=== PATIENT | female | born 1995 | race Caucasian/White ===

== ENCOUNTER 2017-08-27 12:25 | Emergency (ER) | payer OTHER ==
[2017-08-27] MEDS ORDERED: IBUPROFEN 400 MG TAB ONE (12:45)
[2017-08-27] MEDS ORDERED: IBUPROFEN 200 MG TAB PO ONE (12:45)
[2017-08-27] MEDS ORDERED: CEFTRIAXONE 1000 MG/VIAL ONE (13:26)
[2017-08-27] MEDS ORDERED: NA CHLORIDE 0.9% 1,000 ML ONE (13:26)
[2017-08-27] MEDS ORDERED: NA CHLORIDE 0.9% 100 ML IV ONE (13:26)
[2017-08-27 13:34] LABS: Absolute Lymphocytes (CBC) 0.7 K/uL (0.7-4.9); Absolute Monocytes 1.2 K/uL (0.1-1.3); Absolute Neutrophil 13.2 K/uL (1.8-8.0); Basophils % 0.2 % (0-1.3); Hematocrit 36.6 % (36.0-45.0); Lymphocytes % 4.8 % (15.3-44.8); MCH 30.2 pg (27.0-35.0); MCV 92.3 fL (80-100); MPV 8.2 fL (7.6-11.3); Monocytes % 8.1 % (3.3-12.3); RBC Red Blood Cell Count 3.96 M/uL (3.86-4.86)
[2017-08-27 13:46] LABS: BUN Blood Urea Nitrogen 7 mg/dL (7-18); Bicarbonate 25 mmol/L (21-32); Glucose Level 88 mg/dL (74-106); Potassium 3.4 mmol/L (3.5-5.1); Sodium Level 137 mmol/L (136-145)
[2017-08-27 13:46] LABS: Urine Amorphous Sediment 1+ /HPF (NONE SEEN); Urine Bacteria 20-50 /HPF (<20); Urine Culture Reflex Order REFLEXED; Urine Mucus 2+ /HPF (NONE SEEN)
[2017-08-27 13:47] LABS: Urine Blood 2+ (NEG); Urine Glucose NEGATIVE (NEG); Urine Protein NEGATIVE (NEG); Urine pH 6.5 (5.0-7.0)
[2017-08-27 14:39] LABS: Blood Morphology Comment NOT SEEN (NOT SEEN); Platelet Estimate ADEQ; Urine White Blood Cell Casts OK
--- NOTE | 2017-08-27 15:13 | EDPHYS ---
Physician Documentation [facility] Name: Alejandra Flores Age: 22 yrs Sex: Female : 1995 Arrival Date: 08/27/2017 Time: 12:29 Bed 24 Private MD: None, None ED Physician Blaise Wheeler HPI: 08/27 13:43 This 22 yrs old Female presents to ER via Ambulatory with complaints of jr8 urinary symptoms. 13:43 The patient presents with flank pain, on the right, urinary symptoms, dysuria, jr8 frequency, urgency. Onset: The symptoms/episode began/occurred gradually, 1 week(s) ago, and became worse and became persistent. Modifying factors: The symptoms are alleviated by nothing, the symptoms are aggravated by urinating. Associated signs and symptoms: Pertinent positives: fever, dizziness. Severity of symptoms: At their worst the symptoms were moderate, in the emergency department the symptoms are unchanged. The patient has not experienced similar symptoms in the past. The patient has not recently seen a physician. 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 - Social history:: Smoking status: Patient uses tobacco products, smokes one-half pack cigarettes per day. - Ebola Screening: : Patient negative for fever greater than or equal to 101.5 degrees Fahrenheit, and additional compatible Ebola Virus Disease symptoms Patient denies exposure to infectious person Patient denies travel to an Ebola-affected area in the 21 days before illness onset No symptoms or risks identified at this time. ROS: 13:43 Eyes: Negative for injury, pain, redness, and discharge, ENT: Negative for injury, jr8 pain, and discharge, Neck: Negative for injury, pain, and swelling, Cardiovascular: Negative for chest pain, palpitations, and edema, Respiratory: Negative for shortness of breath, cough, wheezing, and pleuritic chest pain, Abdomen/GI: Negative for abdominal pain, nausea, vomiting, diarrhea, and constipation, MS/Extremity: Negative for injury and deformity, Skin: Negative for injury, rash, and discoloration, Neuro: Negative for headache, weakness, numbness, tingling, and seizure. 13:43 Back: Positive for flank pain, on the left. 13:43 : Positive for urinary symptoms, burning with urination. Exam: 13:43 Eyes: Pupils equal round and reactive to light, extra-ocular motions intact. Lids and jr8 lashes normal. Conjunctiva and sclera are non-icteric and not injected. Cornea within normal limits. Periorbital areas with no swelling, redness, or edema. ENT: Nares patent. No nasal discharge, no septal abnormalities noted. Tympanic membranes are normal and external auditory canals are clear. Oropharynx with no redness, swelling, or masses, exudates, or evidence of obstruction, uvula midline. Mucous membranes moist. Neck: Trachea midline, no thyromegaly or masses palpated, and no cervical lymphadenopathy. Supple, full range of motion without nuchal rigidity, or vertebral point tenderness. No Meningismus. Cardiovascular: Regular rate and rhythm with a normal S1 and S2. No gallops, murmurs, or rubs. Normal PMI, no JVD. No pulse deficits. Respiratory: Lungs have equal breath sounds bilaterally, clear to auscultation and percussion. No rales, rhonchi or wheezes noted. No increased work of breathing, no retractions or nasal flaring. Skin: Warm, dry with normal turgor. Normal color with no rashes, no lesions, and no evidence of cellulitis. MS/ Extremity: Pulses equal, no cyanosis. Neurovascular intact. Full, normal range of motion. Neuro: Awake and alert, GCS 15, oriented to person, place, time, and situation. Cranial nerves II-XII grossly intact. Motor strength 5/5 in all extremities. Sensory grossly intact. Cerebellar exam normal. Normal gait. 13:43 Abdomen/GI: Inspection: abdomen appears normal, Bowel sounds: active, all quadrants, Palpation: soft, in all quadrants, mild abdominal tenderness, in the suprapubic area, mass, is not appreciated, rebound tenderness, is not appreciated, voluntary guarding, is not appreciated, involuntary guarding, is not appreciated, no appreciated organomegaly, Indicators: McBurney's point is not tender, Henley's sign is negative, Rovsing's sign is negative, Liver: no appreciated palpable abnormalities, tenderness, is not appreciated. 13:43 Back: pain, that is moderate, of the right flank, ROM is normal, normal spinal alignment noted, CVA tenderness, that is mild, is noted on the right. Vital Signs: 12:45 BP 128 / 72; Pulse 105; Resp 20; Temp 101.1; Pulse Ox 97% on R/A; Weight 65.77 kg; aj Height 5 ft. 10 in. (177.80 cm); 13:25 BP 108 / 62; Pulse 77; Resp 18; Pulse Ox 98% on R/A; mt 14:28 BP 106 / 58; Pulse 85; Resp 16; Pulse Ox 99% on R/A; mt 12:45 Body Mass Index 20.81 (65.77 kg, 177.80 cm) aj MDM: 12:51 Patient medically screened. jr8 15:09 Data reviewed: vital signs, nurses notes, lab test result(s), and as a result, I will jr8 discharge patient. Data interpreted: Pulse oximetry: on room air is 99 %. Interpretation: normal. Counseling: I had a detailed discussion with the patient and/or guardian regarding: the historical points, exam findings, and any diagnostic results supporting the discharge/admit diagnosis, the need for outpatient follow up, a family practitioner, to return to the emergency department if symptoms worsen or persist or if there are any questions or concerns that arise at home. Response to treatment: the patient's symptoms have markedly improved after treatment, patient is well hydrated. ED course: reassessed patient. Still has mild flank pain and CVA tenderness upon palpation. No other abdominal tenderness noted. Patient denies pain when she is not being palpated. Discussed with patient that this is more then likely UTI that has ascended into kidney. Needs to rest and hydrate for next couple of days. Will be continued on antibiotics. If worse to come back . 08/27 13:14 Order name: CBC with Diff; Complete Time: 15:02 [facility] 08/27 13:14 Order name: Basic Metabolic Panel; Complete Time: 13:48 08/27 13:14 Order name: Urine Microscopic Only; Complete Time: 13:48 08/27 13:22 Order name: Urine Dipstick--Ancillary (enter results); Complete Time: 13:48 em1 08/27 13:22 Order name: Urine --Ancillary (enter results); Complete Time: 13:48 em1 08/27 13:40 Order name: CBC Smear Scan; Complete Time: 15:02 EDMS 08/27 13:14 Order name: IV; Complete Time: 13:20 [facility] 08/27 13:14 Order name: Urine Test (obtain specimen); Complete Time: 13:15 8 08/27 13:14 Order name: Urine Dipstick-Ancillary (obtain specimen); Complete Time: 13:15 [facility] 08/27 13:46 Order name: Urine Culture EDMS Administered Medications: 12:48 Drug: Motrin 600 mg Route: PO; aj 16:15 Follow up: Response: No adverse reaction tl3 13:38 Drug: Rocephin 2 grams Route: IV; Rate: calculated rate; Site: right antecubital; tl3 16:10 Follow up: IV Status: Completed infusion; IV Intake: 100ml tl3 13:39 Drug: NS 0.9% 1000 ml Route: IV; Rate: 1000 ml; Site: right antecubital; tl3 16:10 Follow up: IV Status: Completed infusion; IV Intake: 1000ml tl3 15:50 Drug: [place] (7.5 mg-325 mg) 1 tabs Route: PO; mb3 15:58 Follow up: Response: No adverse reaction mb3 16:10 Follow up: Response: Medication administered at discharge. tl3 Disposition: 08/28 06:39 Co-signature as Attending Physician, Blaise Wheeler MD I agree with the assessment and luisana plan of care. Disposition: 08/27/17 15:12 Discharged to Home. Impression: Acute tubulo-interstitial nephritis. - Condition is Stable. - Discharge Instructions: Pyelonephritis, Adult. - Prescriptions for Bactrim DS 800- 160 mg Oral Tablet - take 1 tablet by ORAL route every 12 hours for 10 days; 20 tablet. Zofran 4 mg Oral Tablet - take 1 tablet by ORAL route every 12 hours As needed; 20 tablet. - Medication Reconciliation Form, Thank You Letter, Antibiotic Education, Prescription Opioid Use, Work release form form. - Follow up: Private Physician; When: 1 - 2 days; Reason: Recheck today's complaints, Continuance of care, Re-evaluation by your physician. - Problem is new. - Symptoms have improved. Signatures: Dispatcher [employer] EDMS Sanches, Lori, RN Blaise Lima MD MD cha Roszak, Josh, PA PA jr8 Alona Dillon, SONI RN tl3 Nathaniel Britt RN RN mb3 Corrections: (The following items were deleted from the chart) 08/27 16:16 15:12 08/27/2017 15:12 Discharged to Home. Impression: Acute tubulo-interstitial tl3 nephritis. Condition is Stable. Forms are Medication Reconciliation Form, Thank You Letter, Antibiotic Education, Prescription Opioid Use. Follow up: Private Physician; When: 1 - 2 days; Reason: Recheck today's complaints, Continuance of care, Re-evaluation by your physician. Problem is new. Symptoms have improved. jr8
--- NOTE | 2017-08-27 15:13 | ER ---
Nurse's Notes [facility] Name: Alejandra Flores Age: 22 yrs Sex: Female : 1995 Arrival Date: 08/27/2017 Time: 12:29 Bed 24 Private MD: None, None Diagnosis: Acute tubulo-interstitial nephritis Presentation: 08/27 12:44 Presenting complaint: Patient states: Burning with urination for 1 week and fever since this AM. Transition of care: patient was not received from another setting of care. Onset of symptoms was August 20, 2017. Risk Assessment: Do you want to hurt yourself or someone else? Patient reports no desire to harm self or others. Initial Sepsis Screen: Does the patient meet any 2 criteria? No. Patient's initial sepsis screen is negative. Does the patient have a suspected source of infection? No. Patient's initial sepsis screen is negative. Care prior to arrival: None. 12:44 Method Of Arrival: Ambulatory 12:44 Acuity: GIULIANA 3 Triage Assessment: 12:45 Headache History: The patient has had previous headaches and this one is similar to previous episodes. General: Appears in no apparent distress. uncomfortable, Behavior is calm, cooperative, appropriate for age. Pain: Complains of pain in scalp, right mid back and right low back Pain currently is 6 out of 10 on a pain scale. Neuro: Level of Consciousness is awake, alert, obeys commands, Oriented to person, place, time, situation, Appropriate for age. Respiratory: Airway is patent Respiratory effort is even, unlabored, Respiratory pattern is regular, symmetrical. : Reports burning with urination, pain in right in lower back urinary frequency. Derm: Skin is intact, Skin is normal, Skin temperature is hot. 16:13 Pain: Is episodic, Also complains of. tl3 16:13 Pain: Pain began 2-3 days ago. 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 - Social history:: Smoking status: Patient uses tobacco products, smokes one-half pack cigarettes per day. - Ebola Screening: : Patient negative for fever greater than or equal to 101.5 degrees Fahrenheit, and additional compatible Ebola Virus Disease symptoms Patient denies exposure to infectious person Patient denies travel to an Ebola-affected area in the 21 days before illness onset No symptoms or risks identified at this time. Screenin:15 Abuse screen: Denies threats or abuse. Nutritional screening: No deficits noted. tl3 Tuberculosis screening: No symptoms or risk factors identified. Fall Risk None identified. Assessment: 13:15 General: General: Appears in no apparent distress. comfortable, well groomed, well tl3 developed, well nourished, Behavior is calm, cooperative, appropriate for age. Pain: Complains of pain in lower abdomen. 14:00 Reassessment: Patient appears in no apparent distress at this time. No changes from tl3 previously documented assessment. Patient and/or family updated on plan of care and expected duration. Pain level reassessed. Patient is alert, oriented x 3, equal unlabored respirations, skin warm/dry/pink. pt has no needs at this time awaiting disposition. Vital Signs: 12:45 BP 128 / 72; Pulse 105; Resp 20; Temp 101.1; Pulse Ox 97% on R/A; Weight 65.77 kg; aj Height 5 ft. 10 in. (177.80 cm); 13:25 BP 108 / 62; Pulse 77; Resp 18; Pulse Ox 98% on R/A; mt 14:28 BP 106 / 58; Pulse 85; Resp 16; Pulse Ox 99% on R/A; mt 12:45 Body Mass Index 20.81 (65.77 kg, 177.80 cm) ED Course: 12:29 Patient arrived in ED. mr 12:30 None, None is Private Physician. mr 12:45 Triage completed. aj 12:45 Arm band placed on right wrist. Patient placed in an exam room. Antipyretics given from triage as ordered by an ER provider. 12:51 Ciro Cisse PA is PHCP. jr8 12:51 Blaise Wheeler MD is Attending Physician. jr8 13:15 Patient has correct armband on for positive identification. Bed in low position. Call tl3 light in reach. Side rails up X 1. 13:15 No provider procedures requiring assistance completed. tl3 13:20 Inserted saline lock: 20 gauge in right antecubital area, using aseptic technique. mt Blood collected. 13:22 Alona Dillon, RN is Primary Nurse. tl3 15:52 IV discontinued, intact, bleeding controlled, No redness/swelling at site. mt 16:16 Pressure dressing applied. tl3 Administered Medications: 12:48 Drug: Motrin 600 mg Route: PO; aj 16:15 Follow up: Response: No adverse reaction tl3 13:38 Drug: Rocephin 2 grams Route: IV; Rate: calculated rate; Site: right antecubital; tl3 16:10 Follow up: IV Status: Completed infusion; IV Intake: 100ml tl3 13:39 Drug: NS 0.9% 1000 ml Route: IV; Rate: 1000 ml; Site: right antecubital; tl3 16:10 Follow up: IV Status: Completed infusion; IV Intake: 1000ml tl3 15:50 Drug: [place] (7.5 mg-325 mg) 1 tabs Route: PO; mb3 15:58 Follow up: Response: No adverse reaction mb3 16:10 Follow up: Response: Medication administered at discharge. tl3 Intake: 16:10 IV: 100ml; Total: 100ml. tl3 16:10 IV: 1000ml; Total: 1100ml. tl3 Outcome: 14:00 Discharged to home ambulatory. tl3 14:00 Condition: stable 14:00 Discharge instructions given to patient, Instructed on discharge instructions, Demonstrated understanding of instructions, follow-up care, medications, Prescriptions given X 1. 15:12 Discharge ordered by . candido 16:16 Patient left the ED. tl3 Addendum: 08/30/2017 07:30 Addendum: Culture Results: Positive urine culture. No further action required. Bacteria s s sensitive to prescribed antibiotic. Signatures: Lori Sanches, RN Brenna Langley mr Bushra Johnson, Ciro Mackay RN, PA PA jr8 Thompson, Moriah ny Alona Dillon, SONI SHAFER tl3 Nathaniel Britt RN RN mb3
[2017-08-27] MEDS ORDERED: HYDROCODONE/APAP 7.5/325 MG TAB ONE (15:52)
== END 2017-08-27 16:16 | disposition home or self-care (01) ==
LOC: ER 12:25
DX: N10 Acute pyelonephritis (principal); F17.210 Nicotine dependence, cigarettes, uncomplicated
CPT/HCPCS: 36415; 80048; 81003; 81015; 81025; 85025; 87077; 87086; 87088; 87186; 96365; 96366; 99284; J7030

== ENCOUNTER 2021-10-17 22:27 | Emergency (ER) | payer BC, OTHER ==
--- NOTE | 2021-10-17 23:10 | EDPHYS ---
Physician Documentation [facility] Name: Alejandra Flores Age: 26 yrs Sex: Female : 1995 Arrival Date: 10/17/2021 Time: 22:30 Bed Treatment Private MD: ED Physician Quinn Lucero HPI: 10/17 23:04 This 26 yrs old Female presents to ER via Unassigned with complaints of facial swelling.rn 23:05 The patient presents with pain, swelling. The problem is located in the left cheek. rn Onset: The symptoms/episode began/occurred today. Duration: The symptoms are continuous. Modifying factors: The symptoms are alleviated by nothing, the symptoms are aggravated by nothing. Associated signs and symptoms: Pertinent positives: pain, swelling, Pertinent negatives: dysphagia, fever, inability to eat, vomiting. Severity of symptoms: At their worst the symptoms were moderate, in the emergency department the symptoms are unchanged. The patient has not experienced similar symptoms in the past. The patient has been recently seen by a physician:. Pt reports dental pain that began yesterday, seen today with xrays, told has dental infection, prescribed clindamycin, has taken 3 doses, and noticed increased left facial/cheek swelling today so came in for evaluation. Has had clindamycin before without reaction, no hx of allergies to any medication. . 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 - Social history:: Smoking status: Patient denies any tobacco usage or history of. - Family history:: not pertinent. - Hospitalizations: : No recent hospitalization is reported. ROS: 23:05 Constitutional: Negative for fever, chills, and weight loss, ENT: + left cheek and rn infraorbital swelling Cardiovascular: Negative for chest pain, palpitations, and edema, Respiratory: Negative for shortness of breath, cough, wheezing, and pleuritic chest pain, Abdomen/GI: Negative for abdominal pain, nausea, vomiting, diarrhea, and constipation, Skin: Negative for injury, rash, and discoloration, Neuro: Negative for headache, weakness, numbness, tingling, and seizure. Exam: 23:05 Constitutional: This is a well developed, well nourished patient who is awake, alert, rn and in no acute distress. Ambulatory to room without difficulty or distress Head/Face: Atraumatic. ENT: NO intraoral abscess or swelling. + left buccal swelling and infraorbital swelling, no abscess or fluctuance. Cardiovascular: Regular rate and rhythm. No pulse deficits. Skin: Warm, dry, no rash/urticaria. Neuro: Awake and alert, GCS 15 Vital Signs: 23:03 BP 135 / 82; Pulse 63; Resp 16; Temp 98.7; Pulse Ox 100% ; Weight 70.31 kg; Height 5 zm ft. 9 in. (175.26 cm); 23:03 Body Mass Index 22.89 (70.31 kg, 175.26 cm) zm MDM: 22:54 Patient medically screened. rn 23:05 Differential diagnosis: dental caries, dental abscess, facial cellulitis. Data rn reviewed: vital signs, nurses notes, and as a result, I will discharge patient. Counseling: I had a detailed discussion with the patient and/or guardian regarding: the historical points, exam findings, and any diagnostic results supporting the discharge/admit diagnosis, the need for outpatient follow up, to return to the emergency department if symptoms worsen or persist or if there are any questions or concerns that arise at home. Special discussion: I discussed with the patient/guardian in detail that at this point there is no indication for admission to the hospital. It is understood, however, that if the symptoms persist or worsen the patient needs to return immediately for re-evaluation. Based on the history and exam findings, there is no indication for further emergent testing or inpatient evaluation. I discussed with the patient/guardian the need to see a dentist for further evaluation of the symptoms. ED course: No fluctuance to indicate abscess, just seen by dentist and started on abx today, will dc home with instructions to continue abx and given return precautions. Unlikely allergic reaction as localized to only left face and no systemic symptoms, as well as she has taken clindamycin without problem before. . Administered Medications: No medications were administered Disposition Summary: 10/17/21 23:09 Discharge Ordered Location: Home rn Problem: new rn Symptoms: have worsened rn Condition: Stable rn Diagnosis - Dental caries, unspecified rn - Cellulitis of face rn Followup: rn - With: Private Physician - When: As needed - Reason: Recheck today's complaints, Re-evaluation by your physician Discharge Instructions: - Discharge Summary Sheet rn - Cellulitis, Adult rn - Dental Caries, Adult rn - Dental Pain rn - Preseptal Cellulitis, Adult rn Forms: - Medication Reconciliation Form rn - Thank You Letter rn - Antibiotic director of distance learning - Prescription Opioid Use rn Signatures: Quinn Lucero MD MD rn Calcote, Vanessa RN RN vc1
--- NOTE | 2021-10-17 23:10 | ER ---
Nurse's Notes [facility] Name: Alejandra Flores Age: 26 yrs Sex: Female : 1995 Arrival Date: 10/17/2021 Time: 22:30 Bed Treatment Private MD: Diagnosis: Dental caries, unspecified;Cellulitis of face Presentation: 10/17 23:09 Chief complaint: Patient states: "I went to the dentist today and started antibiotics vc1 for an infected tooth. Now my eye is swollen and I am not sure if it is from my tooth or an allergic reaction.". Coronavirus screen: Vaccine status: Patient reports being unvaccinated. At this time, the client does not indicate any symptoms associated with coronavirus-19. Ebola Screen: No symptoms or risks identified at this time. Mechanism of Injury: No Mechanism of Injury. The patient denies any loss of vision. Initial Sepsis Screen: Does the patient meet any 2 criteria? No. Patient's initial sepsis screen is negative. Does the patient have a suspected source of infection? No. Patient's initial sepsis screen is negative. Risk Assessment: Do you want to hurt yourself or someone else? Patient reports no desire to harm self or others. Onset of symptoms is unknown. 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 - Social history:: Smoking status: Patient denies any tobacco usage or history of. - Family history:: not pertinent. - Hospitalizations: : No recent hospitalization is reported. Screenin:12 Abuse screen: Denies threats or abuse. Nutritional screening: No deficits noted. vc1 Tuberculosis screening: No symptoms or risk factors identified. 23:28 Fall Risk None identified. vc1 Assessment: 23:07 General: Appears in no apparent distress. uncomfortable, Behavior is calm, cooperative, vc1 appropriate for age. Pain: Complains of pain in Left sided tooth pain Pain does not radiate. Pain currently is 2 out of 10 on a pain scale. Neuro: Level of Consciousness is awake, alert, obeys commands, Oriented to person, place, time, situation, Appropriate for age. Cardiovascular: No deficits noted. Respiratory: Airway is patent Respiratory effort is even, unlabored, Respiratory pattern is regular, symmetrical. GI: No signs and/or symptoms were reported involving the gastrointestinal system. : No signs and/or symptoms were reported regarding the genitourinary system. EENT: Eyes Swollen underneath. Sclera/Cornea are clear in outer aspect of conjuctiva of right eye, inner aspect of conjuctiva of right eye, outer aspect of conjuctiva of left eye and inner aspect of conjunctiva of left eye. Derm: No deficits noted. Vital Signs: 23:03 BP 135 / 82; Pulse 63; Resp 16; Temp 98.7; Pulse Ox 100% ; Weight 70.31 kg; Height 5 zm ft. 9 in. (175.26 cm); 23:03 Body Mass Index 22.89 (70.31 kg, 175.26 cm) ED Course: 22:30 Patient arrived in ED. ja2 22:54 Quinn Lucero MD is Attending Physician. rn 23:07 Sunita Ramirez RN is Primary Nurse. vc1 23:11 Triage completed. vc1 23:12 Arm band placed on right wrist. vc1 23:12 No provider procedures requiring assistance completed. Patient did not have IV access vc1 during this emergency room visit. 23:28 Patient has correct armband on for positive identification. Bed in low position. Call vc1 light in reach. Administered Medications: No medications were administered Medication: 23:13 VIS not applicable for this client. vc1 Outcome: 23:09 Discharge ordered by . rn 23:28 Discharged to home ambulatory. vc1 23:28 Condition: good 23:28 Discharge instructions given to patient, Instructed on discharge instructions, follow up and referral plans. Demonstrated understanding of instructions, follow-up care. 23:28 Patient left the ED. vc1 Signatures: Quinn Lucero MD MD rn Alexander, Jessica ja2 Calcote, Vanessa, RN RN vc1 Genna Carvalho
[2021-10-18 02:26] VITALS: BP 135/82; TEMP 98.7; O2SAT 100
== END 2021-10-17 23:28 | disposition home or self-care (01) ==
LOC: ER 22:27
DX: L03.211 Cellulitis of face (principal); K02.9 Dental caries, unspecified